=== PATIENT | male | born 1980 | race Caucasian/White ===

== ENCOUNTER 2019-04-09 07:51 | Emergency (ER) | payer MEDICAID ==
[~2019-04-09] VITALS: Ht 165.1 cm; Wt 70.3 kg
[2019-04-09 07:57] VITALS: BP 117/76; Ht 165.1 cm; Wt 70.3 kg
[2019-04-09 08:51] LABS: UA SPECIFIC GRAVITY 1.025 (1.005-1.035); microscopic required? YES; urine erythrocyte 2+ (NEGATIVE)
== END 2019-04-09 09:42 | disposition home or self-care (01) ==
LOC: ED 07:51
PROVIDERS: Emergency Medicine
DX: A64 Unspecified sexually transmitted disease (principal); N39.0 Urinary tract infection, site not specified; F17.210 Nicotine dependence, cigarettes, uncomplicated
CPT/HCPCS: 87491; 87591; 99406; J0696

== ENCOUNTER 2019-08-28 20:30 | Emergency (ER) | payer MEDICAID ==
[~2019-08-28] VITALS: Ht 167.6 cm; Wt 68.0 kg
[2019-08-28 20:33] VITALS: Ht 167.6 cm; Wt 68.0 kg
[2019-08-28 23:10] VITALS: BP 128/71
== END 2019-08-28 23:11 | disposition home or self-care (01) ==
LOC: ED 20:30
DX: M25.572 Pain in left ankle and joints of left foot (principal); R36.9 Urethral discharge, unspecified; R22.41 Localized swelling, mass and lump, right lower limb
CPT/HCPCS: 87491; 87591; J0696

== ENCOUNTER 2020-10-02 16:25 | Emergency (ER) | payer MEDICAID ==
[~2020-10-02] VITALS: Ht 167.6 cm; Wt 68.9 kg
[2020-10-02 17:31] VITALS: BP 141/87; Ht 167.6 cm; Wt 68.9 kg
== END 2020-10-02 19:56 | disposition home or self-care (01) ==
LOC: ED 16:25
DX: N45.1 Epididymitis (principal); N39.0 Urinary tract infection, site not specified; A64 Unspecified sexually transmitted disease
CPT/HCPCS: 87491; 87591; J0696